=== PATIENT | male | born 1955 | race Caucasian/White ===

== ENCOUNTER → 2016-09-22 | Outpatient (CLI) | payer OTHER, BC ==
[~2016-09-22] VITALS: Ht 170.2 cm; Wt 92.5 kg
[~2016-09-22] MED LIST: ALTACE PO; ALTACE10 MG PO; ASPIR 8181 MG; ETODOLAC 400 M400 MG PO; HYDROCHLOROTHIA25 M2 PO; LIPITOR40 MG PO; NABUMETONE 500500 M1 PO; NEURONTIN 300300 M1 PO; NORVASC10 MG PO; NORVASC5 MG PO; ZOCOR PO
--- NOTE | ~2016-09-22 | HPC ---
[facility] [address] [place] [address] PAIN MANAGEMENT CONSULTATION Name: CLAUDIA CUNHA [facility] [id number] Admission: 09/22/16 Attend Phys: Seth Villanueva DO Discharge: Date of : 55 Report #: [id number] THIS REPORT FOR: //name// CC: Seth Jimenez DATE OF SERVICE: 09/22/2016 REFERRING PHYSICIAN: Mara Stinson, nurse practitioner CHIEF COMPLAINT: Neck pain, right upper extremity pain with paresthesias. HISTORY OF PRESENT ILLNESS: As you know, the patient is a 61-year-old male who returns today in followup visit complaining of neck pain, right upper extremity pain. Majority of the pain begins in the patient's elbow on the right, radiates to the hand. EMG shows C5-C6 chronic radiculopathies. There were no radial or ulnar concerns. He returns today requesting a cervical epidural injection and determine if this would be effective at treating his ongoing pain. If this is ineffective, I would recommend the patient follow up with Neurology for a possible repeat EMG given the distribution symptoms reported today. We are hopeful the patient will see improvement in symptoms with the epidural injection requested to be performed today. We will review efficacy at followup visit. ALLERGIES: No known drug allergies. CURRENT MEDICATIONS: Gabapentin, aspirin, etodolac, atorvastatin, ramipril, amlodipine, hydrochlorothiazide. SOCIAL HISTORY: The patient denies tobacco, alcohol, IV or illicit drug use. He is working, not receiving workmen's compensation, unaccompanied today. IMAGING: No new imaging available. PHYSICAL EXAMINATION: VITAL SIGNS: Blood pressure 140/90, pulse is 59, respiratory rate 16, unlabored. The patient is 94% on room air. Height 5 feet 7 inches tall. Weight 204 pounds, BMI calculated 31.9. GENERAL: Well-developed, well-nourished, well-hydrated exogenously obese 61-year-old male appearing stated age, placing current pain score 5/10. HEENT: Normocephalic, atraumatic. Pupils equal, round, reactive to light. Extraocular muscles are intact. Sclerae are nonicteric, without injection. EXTREMITIES: Show no clubbing, no cyanosis, no edema. MUSCULOSKELETAL: Upper extremity strength appears equal and symmetrical again today 5/5, intact to light touch from C5-T1 dermatomes. Cervical provocation testing including extension, rotation, lateral flexion all intensify axial [facility] [address] [place] [address] PAIN MANAGEMENT CONSULTATION Name: CLAUDIA CUNHA Room #: REG [facility]#: [id number] Admission: 09/22/16 Attend Phys: Seth Villanueva DO Discharge: Date of : 55 Report #: [id number] cervical pain. Phalen's test negative. Tinel's sign positive. Spurling's test is equivocal. ASSESSMENT: 1. Cervical radiculopathy. 2. Cervical spinal stenosis. 3. Cervical spondylosis with radicular symptoms. 4. Right upper extremity neuropathy. 5. Chronic intractable pain. PLAN: 1. The patient returns today in followup visit requesting to undergo cervical epidural injection under fluoroscopic guidance. As you are aware, EMG showed chronic C5-C6 dermatomal distribution neuropathies that are believed to be contributing the patient's overall symptoms. We have discussed with the patient the options for treatment due to side effects with escalating doses of neuropathic pain medications, we have chosen to have the patient undergo a cervical epidural injection and determine if this would be helpful in alleviating symptoms. He has been advised of the risks and the benefits of a cervical epidural injection. These risks include but not necessarily limited to bleeding, bruising, infection, worsening pain, no relief of pain, also risk of temporary or permanent muscle weakness, temporary or permanent nerve damage, possible paralysis and . The patient states understood and wished to proceed. 2. No medication changes were made at today's visit. The patient is to continue current medical therapy as previously prescribed. He has medication available provided to him on 09/02/2016 followup visit. 3. The patient will return to our clinic in approximately 2 weeks. At that time, we will discuss the efficacy of today's epidural injection and determine if a repeat injection might be necessary. PROCEDURE NOTE: DESCRIPTION OF PROCEDURE: C7-T1 cervical epidural steroid injection under fluoroscopic guidance. This is the first procedure of the first series that the patient is undergoing. After obtaining written consent, the patient was taken back to the fluoroscopy suite and placed in a prone position with separate pillows under chest and forehead to decrease cervical lordosis. The skin overlying the cervical area was prepped and draped in an aseptic fashion. The C7-T1 vertebral interspace was identified by AP fluoroscopy. The skin and subcutaneous tissue overlying the target site of injection was anesthetized using 3 mL of 1% lidocaine. [address] [address] PAIN MANAGEMENT CONSULTATION Name: CLAUDIA CUNHA Room #: REG [facility] Colmenares#: [id number] Admission: 09/22/16 Attend Phys: Seth Villanueva DO Discharge: Date of : 55 Report #: [id number] A 20-guage 3-1/2-inch Tuohy needle was advanced under fluoroscopic guidance toward the epidural space using a midline approach. The epidural space was identified using a loss of resistance to air technique. After negative aspiration for heme or cerebrospinal fluid, a total of 1 mL of Omnipaque was injected. A cervical epidurogram was confirmed using AP and oblique fluoroscopy. After negative aspiration for heme or cerebrospinal fluid, 5 mL of a solution containing 2 mL 40 mg/mL 80 mg total triamcinolone, 3 mL lidocaine 1% was injected in increments. Contrast spread was noted from posterior epidural space. The needle was then retracted approximately fci and the needle track was flushed with 1 mL of 1% lidocaine. There were no apparent new sensory deficits in the upper extremities present following the procedure. A sterile bandage was placed over the injection site. The heart rate, pulse oximetry and blood pressure were continuously monitored after the procedure. There were no apparent complications. The patient tolerated the procedure well and was carefully escorted in the recovery room in stable condition. After meeting discharge criteria, the patient was discharged home. <ELECTRONICALLY SIGNED> By: Seth Villanueva DO 10/05/16 0752 [id number] [id number] Seth Villanueva DO /nt
[2016-09-22 08:42] VITALS: BP 140/90
== END | disposition home or self-care (01) ==
LOC: PAIN 07:01
DX: M48.02 Spinal stenosis, cervical region (principal); M47.22 Other spondylosis with radiculopathy, cervical region; G62.9 Polyneuropathy, unspecified; G89.29 Other chronic pain

== ENCOUNTER → 2016-10-07 | Outpatient (CLI) | payer OTHER, BC ==
[~2016-10-07] VITALS: Ht 170.2 cm; Wt 92.5 kg
[~2016-10-07] MED LIST changes: +MOBIC15 MG PO
--- NOTE | ~2016-10-07 | HPC ---
[facility] [address] [place] [address] PAIN MANAGEMENT CONSULTATION Name: CLAUDIA CUNHA [facility] [id number] Admission: 10/07/16 Attend Phys: Seth Villanueva DO Discharge: Date of : 55 Report #: [id number] THIS REPORT FOR: //name// CC: Seth Jimenez MD DATE OF SERVICE: 10/07/2016 REFERRING PHYSICIAN: Jourdan Jimenez MD CHIEF COMPLAINT: Neck pain, right upper extremity pain and paresthesias. HISTORY OF PRESENT ILLNESS: As you know, the patient is a 61-year-old male, returning in followup visit having completed the first in a series of cervical epidural injections under fluoroscopic guidance. The patient reports 75% improvement in overall pain lasting for nearly 10 days with a slow and progressive return of symptoms, now reporting greater than 50% improvement overall. He is placing pain score today no greater than 6/10, states his pain is aching and sharp in sensation, exacerbated with leaning over a computer, leaning on his elbows and improves with rest. He returns today to discuss the possibility of undergoing the next in a series of cervical epidural injections. He denies injury or trauma to his neck that may have caused recurrence of symptoms. ALLERGIES: No known drug allergies. CURRENT MEDICATIONS: Gabapentin, aspirin, etodolac, atorvastatin, ramipril, amlodipine, and hydrochlorothiazide. SOCIAL HISTORY: The patient denies tobacco, alcohol, IV or illicit drug use. He is working, not receiving workmen's compensation. He is unaccompanied today. IMAGING: No new imaging available. PHYSICAL EXAMINATION: VITAL SIGNS: Blood pressure 131/81, pulse 54, respiratory rate 18 and unlabored, the patient is 94% on room air, height 5 feet 7 inches tall, weight 204 pounds, and BMI calculated 31.9. GENERAL: Well-developed, well-nourished, well-hydrated, exogenously obese 61-year-old male, appearing stated age. He is placing current pain score no greater than 6/10. HEENT: Normocephalic, atraumatic. Pupils are equal, round, and reactive to light. Extraocular muscles are intact. EXTREMITIES: Show no clubbing, no cyanosis, and no edema. [address] [address] PAIN MANAGEMENT CONSULTATION Name: CLAUDIA CUNHA Room #: REG [facility].#: [id number] Admission: 10/07/16 Attend Phys: Seth Villanueva DO Discharge: Date of : 55 Report #: [id number] MUSCULOSKELETAL: Upper extremity strength equal and symmetrical 5/5, intact to light touch from C5-T1 dermatomes. Cervical provocation testing causes increase in axial cervical spine pain. Spurling's test is equivocal. Phalen's test negative. Tinel sign positive. There is some palpatory tenderness over the medial aspect of the elbow on the right. ASSESSMENT: 1. Cervical radiculopathy. 2. Cervical spinal stenosis. 3. Cervical spondylosis with radicular symptoms. 4. Right elbow pain. 5. Chronic intractable pain. PLAN: 1. The patient returns today in followup visit noting good efficacy with the initial epidural injection. He is now reporting overall 50% improvement in overall pain. The patient and I have discussed the possibility of repeating a cervical epidural injection at this time. The patient states that at present he would not be able to undergo the procedure as he does not have the time to remain relatively sedentary for a 24-hour period after the injection increasing its efficacy. The patient will plan to undergo a cervical epidural injection in the future. He will contact our clinic to establish a time to undergo the procedure. The patient did very well with this initial injection, we are hopeful to build on the success of previous intervention with a next visit. He will make his appointment when convenient for him. 2. No changes were made in today's appointment from a medication standpoint, he will continue medications as currently prescribed. 3. We will see the patient back for followup visit for the next in a series of cervical epidural injections and discuss other treatment options. <ELECTRONICALLY SIGNED> By: Seth Villanueva DO 10/13/16 1602 [id number] 1117 Seth Villanueva DO /nt
[2016-10-07 08:18] VITALS: BP 131/81
== END ==
LOC: PAIN 07:15
DX: M47.22 Other spondylosis with radiculopathy, cervical region (principal); M79.621 Pain in right upper arm; M48.02 Spinal stenosis, cervical region; G89.29 Other chronic pain; I10 Essential (primary) hypertension

== ENCOUNTER → 2016-11-11 | Outpatient (CLI) | payer OTHER, BC ==
[~2016-11-11] VITALS: Ht 172.7 cm; Wt 93.4 kg
--- NOTE | ~2016-11-11 | HPC ---
[facility] [address] [place] [address] PAIN MANAGEMENT CONSULTATION Name: CLAUDIA CUNHA Room #: REG [facility] [id number] Admission: 11/11/16 Attend Phys: Seth Villanueva DO Discharge: Date of : 55 Report #: [id number] THIS REPORT FOR: //name// CC: Seth Jimenez MD DATE OF SERVICE: 11/11/2016 REFERRING PHYSICIAN: SIDRA Christina CHIEF COMPLAINT: Neck pain, right upper extremity pain with paresthesias, right facial numbness. HISTORY OF PRESENT ILLNESS: As you know, the patient is a 61-year-old male who returns today in followup visit with recurrent cervical radicular symptoms. As you are aware, the patient has undergone extensive evaluation of his cervical region as well as evaluation from Neurology in regards to this right facial numbness and tingling radiating from the neck, his chronic neck pain and right upper extremity symptoms. It has been shown by EMG he is suffering from a chronic C5-C6 radiculopathy on that side. We have tried injection therapies and medication management to assist in pain control. He returns today stating that medications have been effective, but he has recently discontinued their use due to side effects of sleepiness, disorientation and confusion. He has noted an acute exacerbation of his neuropathic symptoms. He returns today to discuss treatment options for coverage for neuropathic symptoms. ALLERGIES: No known drug allergies. CURRENT MEDICATIONS: Gabapentin, aspirin, etodolac, atorvastatin, ramipril, amlodipine, hydrochlorothiazide. SOCIAL HISTORY: The patient denies tobacco, alcohol, IV or illicit drug use. He is working, not receiving workmen's compensation, unaccompanied today. IMAGING: No new imaging available. PHYSICAL EXAMINATION: VITAL SIGNS: Blood pressure 152/94, pulse is 57, respiratory rate 14, unlabored. The patient is 95% on room air. Height 5 feet 8 inches tall, weight 206 pounds, BMI calculated 31.3. GENERAL: Well developed, well nourished, well-hydrated exogenously obese, 61-year-old male appearing his stated age, placing current pain score at anywhere from 3-4/10. HEENT: Normocephalic, atraumatic. Pupils equal, round, reactive to light. [address] [address] PAIN MANAGEMENT CONSULTATION Name: CLAUDIA CUNHA Robert Room #: REG [facility]#: [id number] Admission: 11/11/16 Attend Phys: Seth Villanueva DO Discharge: Date of : 55 Report #: [id number] Extraocular muscles are intact. Sclerae nonicteric without injection. NEUROLOGIC: Cranial nerves 2-12 grossly intact. Speech is fluent. EXTREMITIES: Show no clubbing, no cyanosis, no edema. MUSCULOSKELETAL: Upper extremity strength remains symmetrical 5/5. There is palpatory tenderness over the medial and lateral aspect of the elbow on the right when compared to the left. Cervical provocation testing causes increase in axial cervical spine pain, no radiation of symptoms. Spurling's test remains equivocal. ASSESSMENT: 1. Cervical radiculopathy. 2. Cervical spinal stenosis. 3. Cervical spondylosis with radicular symptoms. 4. Continued right elbow pain. 5. Chronic intractable pain. 6. Medication intolerance. PLAN: 1. The patient has returned today in followup visit noting a recurrence of his neuropathic pain after discontinuing gabapentin therapy. The patient states that he is unable to take the gabapentin due to side effects of somnolence, decreased mental acuity, disorientation and confusion. Once he discontinued the gabapentin, his symptoms began to return. He is now placing a pain score around 3-4/10. He returns today in followup visit to discuss treatment options. He is concerned about his elbow though findings on EMG would indicate no neuropathic component involving the elbow including ulnar or radial nerve entrapments. Symptoms appeared to be related to the C5-C6 condition found on the EMG. The numbness in the patient's right side of his face does not correlate with the C5-C6 distribution, but tends to resolve when the patient is on neuropathic medications. We would recommend a change in his neuropathic medication if this is ineffective. If the patient cannot tolerate the medication, I would recommend a full consultation and review from Neurology to determine if we are missing some other source of symptomology or etiology. We have evaluated the neck, upper extremity and have yet to find any source other than the C5-C6 radiculopathy that could be causing the symptoms, but this again does not correlate to this right facial numbness he experiences. 2. The patient will discontinue his gabapentin, in place we will be using Lyrica, will be providing samples initially to determine if he can tolerate the medication and to what level and then make adjustments with full prescriptions. The patient will start out at 150 mg at night for 1 week. He was given 75 mg tablets to take 2 at night for 7 days, then increase to 1 tablet in the morning, 2 tabs at night if necessary, after one week if he is of 1 tab in the morning, 2 tabs at night, he is not noticing improvement in symptoms and he is not having side effects to the therapy, then he is to increase to 150 mg twice a day. He was given samples of the Lyrica to make this titration. He will contact our clinic with any questions or concerns in regards to medication. Once he reaches [facility] [address] [place] [address] PAIN MANAGEMENT CONSULTATION Name: CLAUDIA CUNHA Robert Room #: REG [facility] Colmenares#: [id number] Admission: 11/11/16 Attend Phys: Seth Villanueva DO Discharge: Date of : 55 Report #: [id number] an efficacious level, we will be providing a prescription for him to be called into his local pharmacy. Given the fact that he has failed gabapentin from a standpoint of side effects, coverage for Lyrica should be approved. We are hopeful the patient will see improvement in symptoms with this medication. He will contact our clinic in regards to efficacy. 3. No other medication changes were made at today's visit. The patient will continue current medical therapy as previously prescribed. We did discuss the possibility of having him undergo a repeat cervical epidural injection. At this time, he wishes to delay this to determine if medications can be effective. If no effect is noted, he will return for a cervical epidural injection. By: [id number] 1150 Seth Villanueva DO /nt
[2016-11-11 08:12] VITALS: BP 152/94
== END ==
LOC: PAIN 06:45
DX: M54.2 Cervicalgia (principal); Z79.82 Long term (current) use of aspirin; M48.02 Spinal stenosis, cervical region; M47.22 Other spondylosis with radiculopathy, cervical region; I10 Essential (primary) hypertension

== ENCOUNTER → 2018-06-17 | Outpatient (CLI) | payer OTHER, BC | LOC: ULTRA 09:25 | DX: N45.3 Epididymo-orchitis (principal) ==